=== PATIENT | female | born 1960 | race Caucasian/White ===

== ENCOUNTER → 2018-08-30 | Outpatient (CLI) | payer OTHER | LOC: DL.CT 14:47 | PROVIDERS: ATTEND Family Medicine | DX: R46.1 Bizarre personal appearance (principal); R47.01 Aphasia; R20.2 Paresthesia of skin; H93.13 Tinnitus, bilateral; R25.1 Tremor, unspecified | CPT/HCPCS: 70450 ==

== ENCOUNTER 2019-10-05 17:08 | Emergency (ER) | payer OTHER ==
[2019-10-05] MEDS ORDERED: Acetaminophen/HYDROcodone 325-10 MG Tab PO ONE (17:09)
[2019-10-05] MEDS: Sodium Chloride 0.9% 10 ML Syringe FLUSH PRN (17:45)
[2019-10-05] MEDS: Ondansetron 4 MG/2 ML SDV IV ONE (17:58)
[2019-10-05] MEDS: fentaNYL 100 MCG/2 ML SDV IVPUSH ONE (18:01)
--- NOTE | 2019-10-05 18:38 | EDM.PDOC ---
Scribed by Lauryn Lincoln 10/05/19 5590 for Nirav Nieto MD ED HPI GENERAL MEDICAL PROBLEM - General Chief Complaint: Upper Extremity Injury/Pain Stated Complaint: LEFT SHOULDER IN PAIN Time Seen by Provider: 10/05/19 17:25 Source of Information: Reports: Patient, RN, RN Notes Reviewed History Limitations: Reports: No Limitations - History of Present Illness INITIAL COMMENTS - FREE TEXT/NARRATIVE: Patient presents to ED by POV stating that she has left shoulder pain. She was going from her garage into the house and tripped over the step going into the house. She went forward into some cupboards with her left shoulder and then to the ground. She has a cast to left wrist for a fracture that is due to come off this week. She took Ibuprofen 600mg before coming to ER. Injury happened just a few minutes before arrival to ER. Onset: Today, Sudden Location: Reports: Upper Extremity, Left Quality: Reports: Ache Severity: Severe Improves with: Reports: Immobilization Worsens with: Reports: Movement Context: Reports: Other (Ground level fall.) Associated Symptoms: Reports: No Other Symptoms - Related Data Allergies Allergy/AdvReac Type Severity Reaction Status Date / Time No Known Allergies Allergy Verified 10/05/19 17:17 Home Meds: Home Meds FLUoxetine HCl [Fluoxetine HCl] 20 mg PO DAILY 10/05/19 [History] Naltrexone 50 mg PO DAILY 10/05/19 [History] hydrOXYzine HCL [hydrOXYzine] 50 mg PO Q8H PRN 10/05/19 [History] Past Medical History Musculoskeletal History: Reports: Fracture (Left wrist) Psychiatric History: Reports: Depression Social & Family History - Family History Family Medical History: Noncontributory - Living Situation & Occupation Living situation: Reports: with Family Review of Systems - Review of Systems Review Of Systems: Comprehensive ROS is negative, except as noted in HPI. ED EXAM, GENERAL - Physical Exam Exam: See Below Exam Limited By: No Limitations General Appearance: Alert, WD/WN, No Apparent Distress Eye Exam: Bilateral Eye: Normal Inspection Ears: Normal External Exam, Normal Canal, Hearing Grossly Normal, Normal TMs Nose: Normal Inspection, Normal Mucosa, No Blood Throat/Mouth: Normal Inspection, Normal Lips, Normal Voice, No Airway Compromise Head: Atraumatic, Normocephalic Neck: Normal Inspection, Supple, Non-Tender, Full Range of Motion Respiratory/Chest: No Respiratory Distress, Lungs Clear, No Accessory Muscle Use Cardiovascular: Normal Peripheral Pulses, Regular Rate, Rhythm GI/Abdominal: Normal Bowel Sounds, Soft, Non-Tender (Female) Exam: Deferred Rectal (Female) Exam: Deferred Back Exam: Normal Inspection, Full Range of Motion, NT Extremities: Normal Capillary Refill, Joint Swelling (Left shoulder), Arm Pain, Limited Range of Motion, Other (acute left shoulder tenderness with swelling and decreased range of motion. ) Neurological: Alert, Oriented, CN II-XII Intact, Normal Cognition, Normal Gait, No Motor/Sensory Deficits Psychiatric: Normal Affect, Normal Mood Skin Exam: Warm, Dry, Intact, Normal Color, No Rash Course - Vital Signs Last Recorded V/S: Last Vital Signs Temp 96.8 F L 10/05/19 17:10 Pulse 69 10/05/19 17:10 Resp 18 10/05/19 17:10 BP 125/78 10/05/19 17:10 Pulse Ox 100 10/05/19 17:10 - Orders/Labs/Meds Orders: Active Orders 24 hr Category Date Time Status Peripheral IV Care [RC] . DIRECTED Care 10/05/19 17:37 Active Shoulder Comp Lt [CR] Stat Exams 10/05/19 17:33 Taken Sodium Chloride 0.9% [Saline Flush] Med 10/05/19 17:37 Active 10 ml FLUSH ASDIRECTED PRN DME for Discharge [COMM] Routine Oth 10/05/19 18:32 Ordered Peripheral IV Insertion Adult [OM.PC] Stat Oth 10/05/19 17:36 Ordered Medication Orders Sodium Chloride (Saline Flush) 10 ml FLUSH ASDIRECTED PRN PRN Reason: Keep Vein Open Last Admin: 10/05/19 17:45 Dose: 10 ml Meds: Medications Generic Name Dose Route Start Last Admin Trade Name Freq PRN Reason Stop Dose Admin Sodium Chloride 10 ml 10/05/19 17:37 10/05/19 17:45 Saline Flush FLUSH 10 ml ASDIRECTED PRN Administration Keep Vein Open Discontinued Medications Generic Name Dose Route Start Last Admin Trade Name Freq PRN Reason Stop Dose Admin Fentanyl 50 mcg 10/05/19 17:37 10/05/19 18:01 Sublimaze IVPUSH 10/05/19 17:38 50 mcg ONETIME ONE Administration Ondansetron HCl 4 mg 10/05/19 17:36 10/05/19 17:58 Zofran IV 10/05/19 17:37 4 mg ONETIME ONE Administration - Radiology Interpretation Free Text/Narrative:: [facility] [place] [facility] Final Radiology Report Call: [phone] assistance Online chat: [email or web address] Name: MARK SERRANO Age: 59Years F Date: 10/05/2019 SSN: -- : 1960 Study: XR SHOULDER COMPLETE MIN OF 2 VIEWS LEFT Requesting Physician: NIRAV NIETO Images: 2 Addl Studies: Provided Clinical History: Contrast: Contrast Medium: Contrast Amount: Contrast Method: Page 1 of 2 PROCEDURE INFORMATION: Exam: XR Left Shoulder Exam date and time: 10/05/2019 5:45 PM Age: 59 years old Clinical indication: Other: Fall/pain TECHNIQUE: Imaging protocol: XR Left shoulder. Views: 2 or more views. COMPARISON: No relevant prior studies available. FINDINGS: Bones/joints: Bones are osteopenic. 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 Comminuted fracture of the humeral neck with slight separation of component fragments. Fracture of the greater tuberosity with minimal displacement. Cannot exclude fracture of the lesser tuberosity. No dislocation. Soft tissues: Normal. IMPRESSION: 1. 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 2. Comminuted fracture of the humeral neck with slight separation of component fragments. 3. Fracture of the greater tuberosity with minimal displacement. 4. Cannot exclude fracture of the lesser tuberosity. 5. Internal derangements not excludable. Thank you for allowing us to participate in the care of your patient. Dictated and Authenticated by: Napoleon Hollis MD Departure - Departure Time of Disposition: 18:33 Disposition: Home, Self-Care 01 Condition: Fair Clinical Impression: Fracture of neck of left humerus Qualifiers: Encounter type: initial encounter Fracture type: closed Qualified Code(s): S42.212A - Unspecified displaced fracture of surgical neck of left humerus, initial encounter for closed fracture - Discharge Information *PRESCRIPTION DRUG MONITORING PROGRAM REVIEWED*: Not Applicable *COPY OF PRESCRIPTION DRUG MONITORING REPORT IN PATIENT BECKY: Not Applicable Instructions: Humerus Fracture Treated With Immobilization Forms: ED Department Discharge Additional Instructions: Vicodin 10mg/325mg Go to [facility] between 8:00AM and 12:00PM to be evaluated by Dr. Laurent. Call [phone] for appointment. Sepsis Event Note - Focused Exam Vital Signs: Vital Signs Temp Pulse Resp BP Pulse Ox 10/05/19 17:10 96.8 F L 69 18 125/78 100 Date Exam was Performed: 10/05/19 Time Exam was Performed: 18:33 - My Orders Last 24 Hours: My Active Orders 10/05/19 17:33 Shoulder Comp Lt [CR] Stat 10/05/19 17:36 Peripheral IV Insertion Adult [OM.PC] Stat 10/05/19 17:37 Peripheral IV Care [RC] . DIRECTED Sodium Chloride 0.9% [Saline Flush] 10 ml FLUSH ASDIRECTED PRN 10/05/19 18:32 DME for Discharge [COMM] Routine - Assessment/Plan Last 24 Hours: My Active Orders 10/05/19 17:33 Shoulder Comp Lt [CR] Stat 10/05/19 17:36 Peripheral IV Insertion Adult [OM.PC] Stat 10/05/19 17:37 Peripheral IV Care [RC] . DIRECTED Sodium Chloride 0.9% [Saline Flush] 10 ml FLUSH ASDIRECTED PRN 10/05/19 18:32 DME for Discharge [COMM] Routine I have read and agree with the documentation that has been completed regarding this visit. By signing this record, I attest that the documentation was completed in my physical presence and is an accurate record of the encounter.
[2019-10-05] MEDS: Acetaminophen/HYDROcodone 325-10 MG Tab ONE (19:02)
== END 2019-10-05 19:04 | disposition home or self-care (01) ==
LOC: DL.ED 17:08
DX: S42.212A Unspecified displaced fracture of surgical neck of left humerus, initial encounter for closed fracture (principal); F32.9 Major depressive disorder, single episode, unspecified; Z79.899 Other long term (current) drug therapy; W01.0XXA Fall on same level from slipping, tripping and stumbling without subsequent striking against object, initial encounter
CPT/HCPCS: 73030; 96374; 96375; 99283; A9270; J2405; J3010

== ENCOUNTER 2022-12-08 06:59 | Day surgery (SDC) | payer OTHER ==
[2022-12-08] MEDS: Dextrose 5%-0.45% NaCl 1,000 ML IV SCH (07:33)
[2022-12-08] MEDS ORDERED: fentaNYL 100 MCG/2 ML SDV ONE (07:39)
[2022-12-08] MEDS ORDERED: Midazolam 1 MG/ML 2 ML SDV IV ONE (07:39)
[2022-12-08] MEDS ORDERED: fentaNYL 100 MCG/2 ML SDV IV ONE (07:39)
[2022-12-08] MEDS ORDERED: Midazolam 1 MG/ML 2 ML SDV ONE (07:39)
[2022-12-08] MEDS: fentaNYL 100 MCG/2 ML SDV IV ONE ×6 (08:22→08:31)
[2022-12-08] MEDS: Midazolam 1 MG/ML 2 ML SDV IV ONE ×6 (08:23→08:27)
== END 2022-12-08 10:10 | disposition home or self-care (01) ==
LOC: DL.ENDO 06:59
PROVIDERS: ATTEND Internal Medicine Gastroenterology
DX: Z12.11 Encounter for screening for malignant neoplasm of colon (principal); R73.9 Hyperglycemia, unspecified; E78.5 Hyperlipidemia, unspecified; I10 Essential (primary) hypertension; F32.A Depression, unspecified; M85.80 Other specified disorders of bone density and structure, unspecified site; F41.1 Generalized anxiety disorder; F17.210 Nicotine dependence, cigarettes, uncomplicated; Z86.010 Personal history of colon polyps
CPT/HCPCS: J2250; J3010; J7042

== ENCOUNTER 2024-04-07 07:24 | Emergency (ER) | payer OTHER ==
[2024-04-07 07:58] LABS: APPEARANCE,URINE CLEAR (CLEAR); BILIRUBIN,URINE NEGATIVE (NEGATIVE); COLOR,URINE YELLOW (YELLOW); GLUCOSE,URINE NEGATIVE (NEGATIVE); KETONES,URINE TRACE (NEGATIVE); LEUKOCYTE ESTERASE,URINE NEGATIVE (NEGATIVE); NITRITE,URINE NEGATIVE (NEGATIVE); OCCULT BLOOD,URINE MODERATE (NEGATIVE); PH,URINE 6.5 (5.0-9.0); PROTEIN,URINE 30 (NEGATIVE); UROBILINOGEN,URINE 0.2 mg/dL (0.2-1.0)
[2024-04-07 08:16] LABS: BASOPHILS PERCENT AUTO 0.6 % (0.0-1.0); EOSINOPHILS PERCENT AUTO 0.5 % (1.0-3.0); HEMATOCRIT 44.3 % (37.0-47.0); HEMOGLOBIN 15.8 g/dL (12.0-16.0); LYMPHOCYTES PERCENT AUTO 7.7 % (20.5-50.1); MEAN CORPUSCULAR HEMOGLOBIN 32.9 pg (27.0-34.0); MEAN CORPUSCULAR HGB CONC 35.7 g/dL (33.0-35.0); MEAN CORPUSCULAR VOLUME 92.3 fL (80-100); MONOCYTES PERCENT AUTO 6.3 % (2-8); NEUTROPHILS PERCENT AUTO 84.9 % (42.2-75.2); PLATELET COUNT,PLT 259 10^3/uL (150-450); WHITE BLOOD CELL COUNT,WBC 10.1 10^3/uL (5.0-10.0)
[2024-04-07 08:17] LABS: AMORPHOUS SEDIMENT,URINE FEW /HPF (NOT SEEN); BACTERIA,URINE FEW /HPF (0-FEW/HPF); EPITHELIAL CELLS,URINE MODERATE /HPF (NOT SEEN); MUCUS,URINE MODERATE /LPF (NOT SEEN); WBC,URINE 0-5 /HPF (0-5/HPF)
[2024-04-07] MEDS: Sodium Chloride 0.9% 500 ML IV ONE (08:33)
[2024-04-07 08:44] LABS: A/G RATIO 1.1; ALANINE AMINOTRANSFERASE,ALT 173 U/L (14-59); ALBUMIN 4.3 g/dL (3.4-5.0); ALKALINE PHOSPHATASE 104 U/L (46-116); ANION GAP 15.1 mEq/L (7-13); ASPARTATE AMNIOTRANSFERASE,AST 207 U/L (15-37); BILIRUBIN TOTAL 1.1 mg/dL (0.2-1.0); BLOOD UREA NITROGEN,BUN 10 mg/dL (7-18); BUN/CREATININE RATIO 11.8 (No establ ref range); CALCIUM 9.9 mg/dL (8.5-10.1); CARBON DIOXIDE,CO2 28 mmol/L (21-32); CHLORIDE,CL 96 mmol/L (98-107); CREATININE 0.85 mg/dL (0.55-1.02); EST CRCL DRUG DOSING (CG) 62.54 mL/min; GLUCOSE RANDOM 133 mg/dL (70-99); POTASSIUM,K 4.1 mmol/L (3.5-5.1); PROTEIN TOTAL,TP 8.1 g/dL (6.4-8.2); SODIUM,NA 135 mmol/L (136-145)
[2024-04-07 08:47] LABS: ESTIMATED GFR 78 mL/min (>=60)
[2024-04-07 09:21] LABS: LIPASE 64 U/L (16-77)
[2024-04-07 09:24] LABS: MONONUCLEOSIS SCREEN NEGATIVE
== END 2024-04-07 09:45 | disposition home or self-care (01) ==
LOC: DL.ED 07:24
DX: B34.9 Viral infection, unspecified (principal); I10 Essential (primary) hypertension; Z79.899 Other long term (current) drug therapy
CPT/HCPCS: 36415; 71046; 80053; 81001; 83690; 84484; 85025; 86308; 87081; 87428; 87430; 99285; J7030; 99283

== ENCOUNTER 2024-07-27 20:12 | Emergency (ER) | payer OTHER ==
[2024-07-27] MEDS ORDERED: Sodium Chloride 0.9% 10 ML Syringe FLUSH PRN (20:55)
[2024-07-27] MEDS: Ondansetron 4 MG/2 ML SDV IVPUSH ONE (21:04)
[2024-07-27] MEDS: Lactated Ringers 1,000 ML IV ONE (21:04)
[2024-07-27 21:10] LABS: BASOPHILS PERCENT AUTO 0.2 % (0.0-1.0); HEMATOCRIT 39.5 % (37.0-47.0); HEMOGLOBIN 13.9 g/dL (12.0-16.0); LYMPHOCYTES PERCENT AUTO 5.4 % (20.5-50.1); MEAN CORPUSCULAR HEMOGLOBIN 37.2 pg (27.0-34.0); MEAN CORPUSCULAR HGB CONC 35.2 g/dL (33.0-35.0); MEAN CORPUSCULAR VOLUME 105.6 fL (80-100); MONOCYTES PERCENT AUTO 9.2 % (2-8); NEUTROPHILS PERCENT AUTO 85.2 % (42.2-75.2); PLATELET COUNT,PLT 132 10^3/uL (150-450); RED BLOOD CELL COUNT 3.74 10^6/uL (4.2-5.4); WHITE BLOOD CELL COUNT,WBC 6.3 10^3/uL (5.0-10.0)
[2024-07-27 21:21] LABS: A/G RATIO 1.2; ALANINE AMINOTRANSFERASE,ALT 57 U/L (14-59); ALBUMIN 3.9 g/dL (3.4-5.0); ALKALINE PHOSPHATASE 131 U/L (46-116); ASPARTATE AMNIOTRANSFERASE,AST 134 U/L (15-37); BILIRUBIN TOTAL 1.9 mg/dL (0.2-1.0); BLOOD UREA NITROGEN,BUN 10 mg/dL (7-18); BUN/CREATININE RATIO 8.3 (No establ ref range); CALCIUM 9.9 mg/dL (8.5-10.1); CARBON DIOXIDE,CO2 24 mmol/L (21-32); CREATININE 1.21 mg/dL (0.55-1.02); EST CRCL DRUG DOSING (CG) 43.93 mL/min; GLUCOSE RANDOM 193 mg/dL (70-99); LIPASE 44 U/L (16-77); MAGNESIUM 1.6 mg/dL (1.8-2.4); POTASSIUM,K 3.7 mmol/L (3.5-5.1); PROTEIN TOTAL,TP 7.2 g/dL (6.4-8.2)
[2024-07-27 21:25] LABS: ANION GAP 22.7 mEq/L (7-13); CHLORIDE,CL 101 mmol/L (98-107); SODIUM,NA 144 mmol/L (136-145)
[2024-07-27 21:26] LABS: ESTIMATED GFR 51 mL/min (>=60); ETHANOL BLOOD MEDICAL < 3 mg/dL (0)
[2024-07-27] MEDS: Magnesium Sulf/Wat 2 GM/50 mL 2 GM in Premix Bag 1 BAG IV SCH (22:10)
[2024-07-27 23:03] LABS: APPEARANCE,URINE CLEAR (CLEAR); BILIRUBIN,URINE NEGATIVE (NEGATIVE); COLOR,URINE YELLOW (YELLOW); GLUCOSE,URINE NEGATIVE (NEGATIVE); KETONES,URINE 80 (NEGATIVE); LEUKOCYTE ESTERASE,URINE TRACE (NEGATIVE); NITRITE,URINE NEGATIVE (NEGATIVE); OCCULT BLOOD,URINE MODERATE (NEGATIVE); PROTEIN,URINE 100 (NEGATIVE); UROBILINOGEN,URINE 0.2 mg/dL (0.2-1.0)
[2024-07-27 23:12] LABS: AMPHETAMINES,URINE NEGATIVE (NEGATIVE); BARBITURATES,URINE NEGATIVE (NEGATIVE); BENZODIAZEPINE,URINE NEGATIVE (NEGATIVE); MDMA (ECSTASY), URINE NEGATIVE (NEGATIVE); METHADONE,URINE NEGATIVE (NEGATIVE); METHAMPHETAMINES,URINE NEGATIVE (NEGATIVE); OPIATES,URINE NEGATIVE (NEGATIVE); OXYCODONE,URINE NEGATIVE (NEGATIVE); PHENCYCLIDINE,URINE NEGATIVE (NEGATIVE); TCA,URINE NEGATIVE (NEGATIVE)
[2024-07-27] MEDS: Take Home: Ondansetron 4 MG Tab.DIS, 5 Tab Pack PO ONE (23:12)
[2024-07-27 23:16] LABS: BACTERIA,URINE MODERATE /HPF (0-FEW/HPF); EPITHELIAL CELLS,URINE MODERATE /HPF (NOT SEEN); MUCUS,URINE FEW /LPF (NOT SEEN)
== END 2024-07-27 23:44 | disposition home or self-care (01) ==
LOC: DL.ED 20:12
DX: F10.930 Alcohol use, unspecified with withdrawal, uncomplicated (principal); R56.9 Unspecified convulsions; I16.0 Hypertensive urgency; E83.42 Hypomagnesemia; E80.6 Other disorders of bilirubin metabolism; R74.01 Elevation of levels of liver transaminase levels; R11.2 Nausea with vomiting, unspecified; Z86.16 Personal history of COVID-19; Z79.899 Other long term (current) drug therapy
CPT/HCPCS: 36415; 80053; 80305; 80307; 81001; 83690; 83735; 85025; 87086; 93005; 96361; 96365; 96375; 99285; J2405; J3475; J7120; Q0162